=== PATIENT | male | born 1940 | race Caucasian/White ===

== ENCOUNTER → 2017-11-24 15:16 | Outpatient (CLI) | payer MEDICARE, OTHER | END | disposition home or self-care (01) | LOC: D.US 15:16 | DX: R60.0 Localized edema (principal) ==

== ENCOUNTER → 2017-12-05 14:47 | Outpatient (CLI) | payer MEDICARE, OTHER | END | disposition home or self-care (01) | LOC: D.US 12-01 13:00 | DX: M79.605 Pain in left leg (principal) ==

== ENCOUNTER → 2017-12-15 11:47 | Outpatient (CLI) | payer MEDICARE, OTHER | END | disposition home or self-care (01) | LOC: D.US 12-14 11:30 | DX: M79.605 Pain in left leg (principal) ==